=== PATIENT | male | born 1970 | race Caucasian/White ===

== ENCOUNTER → 2020-06-30 08:02 | Outpatient (CLI) | payer BC, SELFPAY ==
--- NOTE | 2020-06-30 08:08 | XR_ITS ---
PROCEDURE: XR KNEE LT 3V CLINICAL INDICATION: LT KNEE PAIN COMPARISON: No exams were available for comparison FINDINGS: No fracture or dislocation. No lytic or blastic change. There is normal mineralization. There is mild joint space narrowing medially and there is mild spurring of the tibial spines. There is moderate spurring of the superior border of the patella. There is no definite effusion. IMPRESSION: Mild degenerate changes of the knee as noted Dictated by: Dr. Zander Tucker MD 06/30/2020 08:37 Dr. Zander Tucker MD in [place] 06/30/2020 08:37
== END ==
PROVIDERS: PCP Family Medicine; Visit Provider Family Medicine
DX: M25.562 Pain in left knee (principal)
CPT/HCPCS: 73562

== ENCOUNTER → 2020-08-20 10:02 | Outpatient (CLI) | payer BC, SELFPAY ==
--- NOTE | 2020-08-20 10:05 | XR_ITS ---
PROCEDURE: XR KNEE LT 4V CLINICAL INDICATION: LT KNEE PAIN COMPARISON: No exams were available for comparison FINDINGS: No fracture or dislocation. No lytic or blastic change. There is normal mineralization. There is mild joint space narrowing medially. There is minor spurring of the tibial spines. The patella is intact and I see no effusion or loose body. IMPRESSION: Minor degenerate changes as noted Dictated by: Dr. Zander Tucker MD 08/20/2020 10:54 Dr. Zander Tucker MD in [place] 08/20/2020 10:54
== END ==
PROVIDERS: PCP Family Medicine; Visit Provider Orthopaedic Surgery
DX: M25.562 Pain in left knee (principal)
CPT/HCPCS: 73564

== ENCOUNTER → 2022-04-27 07:22 | Outpatient (CLI) | payer BC, SELFPAY ==
--- NOTE | 2022-04-27 07:25 | CT_ITS ---
FINAL REPORT CLINICAL HISTORY: PERSONAL HX OF NICOTINE DEPENDENCE quit smoking 5 years ago. smoked 1.5 ppd x 35 years family hx of cancer. FINDINGS: Low-Dose Chest CT Axial images were obtained from the lung apex to the mid abdomen by computed tomography. Low-dose protocol was utilized. CTDI vol (mGy): 2.90 DLP (mGy-cm): 102.90 There are bilateral thyroid nodules with the largest in the right lobe measuring up to 2.2 cm. There is no axillary adenopathy. There is no hilar or mediastinal adenopathy. The heart is proper size. There is mild to moderate coronary artery calcification. There is no pericardial or pleural effusion. Limited images of the upper abdomen are unremarkable. Lung window images demonstrate a right lower lobe nodule measuring 6 mm on image 51. There are several calcified granulomas in the right lower lobe. There are mild changes of emphysema and mild pulmonary scarring. IMPRESSION: 6 mm right lower lobe nodule. Modifier S: Bilateral thyroid nodules. Recommend thyroid ultrasound for further evaluation. Lung RADS category 3S. Recommend 6 month follow-up low-dose chest CT. Reviewed, Interpreted and Dictated by Arie Flores III, MD Transcribed by Esmer Forte Authenticated and . [facility]
== END ==
PROVIDERS: PCP Family Medicine; Visit Provider Family Medicine
DX: Z87.891 Personal history of nicotine dependence (principal); Z12.2 Encounter for screening for malignant neoplasm of respiratory organs
CPT/HCPCS: 71271

== ENCOUNTER → 2022-05-26 13:54 | Outpatient (CLI) | payer BC, SELFPAY ==
--- NOTE | 2022-05-26 13:57 | US_ITS ---
FINAL REPORT CLINICAL HISTORY: THYROID NODULE FINDINGS: THYROID ULTRASOUND Sonographic images of the thyroid was obtained. The right lobe of the thyroid measures 5.0 x 2.4 x 2.1 cm. There is a nodule measuring 2.5 x 2.0 x 2.4 cm. This is mostly solid and hypoechoic consistent with a TI-RADS category 4. The left lobe of the thyroid measures 4.5 x 2.3 x 1.8 cm. There is a nodule measuring 2.0 x 1.3 x 1.5 cm. This is solid and hypoechoic consistent with TI-RADS category 4. The isthmus measures 7 mm. IMPRESSION: Bilateral thyroid nodules. Recommend thyroid ultrasound guided biopsy. Reviewed, Interpreted and Dictated by Arie Flores III, MD Transcribed by Elizabeth Morgan Authenticated and . [facility]
== END ==
PROVIDERS: PCP Family Medicine; Visit Provider Family Medicine
DX: E04.1 Nontoxic single thyroid nodule (principal)
CPT/HCPCS: 76536

== ENCOUNTER → 2022-07-10 07:48 | Outpatient (CLI) | payer BC, SELFPAY ==
--- NOTE | 2022-07-10 | US_ITS ---
FINAL REPORT CLINICAL HISTORY: THYROID NODULE aNun RED FINDINGS: Ultrasound guided thyroid biopsy. HISTORY:. Bilateral thyroid nodules PROCEDURE: After informed consent was obtained and a time-out was performed, the patient was prepped and draped in usual sterile fashion over the anterior neckbilaterally. Utilizing local anesthesia and sterile technique with a 25-gauge needle, access to the bilateral thyroid noduleswas obtained. 3 passes were made on each nodule. The patient received no conscious sedation. The patient tolerated the procedure well and left the department in good condition. IMPRESSION: Status post ultrasound guided biopsy of bilateral thyroid nodules without immediate complication. Films reviewed , interpreted and dictated by Dr. Flores Transcribed by Naun Padgett PA-C. Reviewed, Interpreted and Dictated by Arie Flores III, MD Transcribed by TEOFILO Calhoun Authenticated and [facility]
--- NOTE | 2022-07-10 07:54 | US_ITS ---
FINAL REPORT CLINICAL HISTORY: THYROID NODULE Naun RED FINDINGS: Ultrasound guided thyroid biopsy. HISTORY:. Bilateral thyroid nodules PROCEDURE: After informed consent was obtained and a time-out was performed, the patient was prepped and draped in usual sterile fashion over the anterior neckbilaterally. Utilizing local anesthesia and sterile technique with a 25-gauge needle, access to the bilateral thyroid noduleswas obtained. 3 passes were made on each nodule. The patient received no conscious sedation. The patient tolerated the procedure well and left the department in good condition. IMPRESSION: Status post ultrasound guided biopsy of bilateral thyroid nodules without immediate complication. Films reviewed , interpreted and dictated by Dr. Flores Transcribed by Naun Padgett PA-C. Reviewed, Interpreted and Dictated by Arie Flores III, MD Transcribed by TEOFILO Calhoun Authenticated and [facility]
== END ==
PROVIDERS: PCP Family Medicine; Visit Provider Family Medicine
DX: E04.1 Nontoxic single thyroid nodule (principal)
CPT/HCPCS: 10005; 10006; 76536; 76942; 88173; 88305

== ENCOUNTER → 2022-07-10 09:06 | Outpatient (CLI) | payer BC, SELFPAY ==
[2022-07-10 10:15] LABS: Basophils # 0.1 K/mm3 (0-0.2); Basophils % 2.2 % (0.1-2.0); Eosinophils # 0.2 K/mm3 (0.0-0.4); Eosinophils % 2.7 % (0.1-12.0); Hematocrit 46.5 % (42.0-52.0); Hemoglobin 15.3 g/dL (14.1-18.0); Lymphocytes # 1.2 K/mm3 (0.7-4.5); Lymphocytes % 20.4 % (10-50); Mean Corpuscular HGB Conc 32.8 g/dL (31.8-35.4); Mean Corpuscular Hemoglobin 31.7 pg (27.0-31.2); Mean Corpuscular Volume 96.6 fl (80-94); Mean Platelet Volume 8.2 fl (7.4-10.4); Monocytes # 0.4 K/mm3 (0.1-1.0); Monocytes % 6.1 % (1.7-9.3); Neutrophils % 68.7 % (37.0-80.0); Platelet Count 210 K/mm3 (142-424); Red Blood Count 4.81 M/mm3 (4.60-6.20); White Blood Count 5.8 K/mm3 (4.8-10.8)
[2022-07-10 11:20] LABS: Chloride 101 mmol/L (98-107); Sodium 141 mmol/L (136-145)
[2022-07-10 11:21] LABS: Potassium 4.4 mmoL/L (3.5-5.1)
[2022-07-10 11:24] LABS: Anion Gap 12.4 mEq/L (5-15); Blood Urea Nitrogen 15 mg/dl (9-20); Calcium 8.9 mg/dl (8.4-10.2); Carbon Dioxide 32 mmol/L (22.0-30.0); Estimated Glomerular Filt Rate 89 ml/min (>60); GFR (African American) 107 ML/MIN (>60); Glucose 113 mg/dl (74-100)
== END ==
PROVIDERS: PCP Family Medicine; Visit Provider Surgery
DX: Z01.812 Encounter for preprocedural laboratory examination (principal); Z20.822 Contact with and (suspected) exposure to COVID-19; L72.3 Sebaceous cyst
CPT/HCPCS: 36415; 80048; 85025; C9803; U0003; U0005

== ENCOUNTER 2022-07-13 06:00 | Day surgery (SDC) | payer BC, SELFPAY ==
[2022-07-10 13:21] VITALS: BMI 26.4
[2022-07-13 06:21] VITALS: BP 141/80; PULSE 88; RESP 18; TEMP 36.3; O2SAT 98
--- NOTE | 2022-07-13 07:32 | P.PN_ITS ---
[facility] Medical History History of COVID-19 Psoriasis Surgical History History of surgery on lower extremity S/P thyroid biopsy Family History Mother Family history of cancer Social History Smoking Status: Never smoker alcohol intake: never substance use type: denies use current occupational status: employed Travel in the last 8 weeks: None [facility] Anesthesia Checklist Patient Identification Patient Identification: Arm Band Structural Data Admitted From: Home Planned Operative Procedure/s: Excision of back cyst Consent for Planned Operative Procedure(s) Verified: Yes Verified Documents: Surgical Consent and History and Physical NPO Status Verified Time NPO: 00:00 Additional verifications Anesthesia Reactions: No Hx Blood Transfusions: No Blood Transfusion Reaction: No Airway Assessment C-Spine Mobility Assessed: Yes TMJ Mobility Assessed: Yes Dentition: Dentures-good fit Neurological Assessment Level of Consciousness: Awake and Alert Anesthesia Plan Anesthesia Risk discussed: Yes Anesthesia Plan: Verified ASA Class: I Anesthesia Type: MAC
--- NOTE | 2022-07-13 08:26 | EXP.OP.NOTE ---
Date of procedure: 07/13/22 Pre-op Diagnosis:: Sebaceous cysts along mid back (x3) Note: Superior cyst 3 cm, mid cyst 2 cm, and lower cyst 5 cm Post-op Diagnosis:: Same Procedure performed:: Excision of cystic lesions from mid back (x3) Note: Cysts ranging between 2 and 5 cm Surgeon:: Brien Eid MD Anesthesia: MAC and local Estimated blood loss (mL): 10 Operative findings:: All 3 cyst excised in toto Superior cyst 3 cm Mid cyst 2 cm Inferior cyst 5 cm Operative note:: After informed consent was obtained the patient was taken to the operating room and placed in the supine position. Monitored anesthesia care ensued and he was transferred to the right lateral decubitus position. His mid back was prepped and draped in a sterile fashion. After infiltration local anesthetic elliptical incisions were made around these 3 lesions sharply with scalpel. The deep subcutaneous tissue was dissected around each of the cystic lesions and they were all 3 excised in toto and passed off for pathologic evaluation. The upper/superior cyst was 3 cm. The mid cyst was 2 cm and the inferior/lower cyst was 5 cm in dimension. Electrocautery was utilized to achieve hemostasis at all 3 sites. Skin was reapproximated with interrupted 4-0 nylon. Dressings were applied and the patient was transferred to recovery in stable condition. Condition: stable Disposition: PACU Specimens:: Upper mid back cystic lesion Mid back cystic lesion Lower mid back cystic lesion Complications:: No immediate
[2022-07-13 08:31] VITALS: BP 104/79; PULSE 95; RESP 18; TEMP 36.6; O2SAT 98
[2022-07-13 08:46] VITALS: BP 136/74; PULSE 79; RESP 19; O2SAT 99
[2022-07-13 09:01] VITALS: BP 155/99; PULSE 86; RESP 19; O2SAT 100
== END 2022-07-13 09:02 | disposition home or self-care (01) ==
PROVIDERS: PCP Family Medicine; Visit Provider Surgery
PROC: (CPT 11403; principal; 2022-07-13 07:30)
DX: L72.0 Epidermal cyst (principal)
CPT/HCPCS: 11403; 11402; 11406; 88304; 96374; J2405; J2704

== ENCOUNTER 2024-10-03 09:18 | Emergency (ER) | payer BC, SELFPAY ==
[2024-10-03 10:20] VITALS: BP 151/85; PULSE 107; RESP 21; TEMP 39.7; O2SAT 95; BMI 30.8
[2024-10-03 10:33] LABS: UTC Influenza B Antigen Negative (Negative)
[2024-10-03 10:34] LABS: UTC Influenza A Antigen Positive (Negative)
[2024-10-03] MEDS: IBUPROFEN 400 MG TABLET 800 MG PO (10:42)
[2024-10-03] MEDS: ACETAMINOPHEN 500MG TAB 1000 MG PO (10:42)
--- NOTE | 2024-10-03 10:51 | ED_ITS ---
Discharge Plan Disposition Patient Disposition: Home, Self-Care Condition: Good Prescriptions Prescriptions: New oseltamivir [Tamiflu] 75 mg capsule 75 mg PO Q12H 5 Days Qty: 10 0RF Referrals Follow up/Referrals: Teodoro Sahu MD [Primary Care Provider] - See instructions Activity Restrictions/Add. Instructions Additional Instructions/Restrictions: * Start Tamiflu today if you are going to take it. Discussed risk and possible benefits. * Lots of rest * Increase Fluids water, Gatorade, powerade, pedialyte,if infant/toddler/child * Alternate Tylenol and / or ibuprofen as discussed for fever, aches, chills Follow up IMMEDIATELY with your family doctor for new or worsening Symptoms OR no noticeable improvement over the next 48-72 hours, 911 for difficulty or breathing * You or your child area contagious until no fever, aches, chills for 24 hours with medication for symptoms * Help Prevent the spread of influenza: * ?Wash your hands often. Use soap and water. Wash your hands after you use the bathroom, change a child's diapers, or sneeze. Wash your hands before you prepare or eat food. Use gel hand cleanser that has 60% alcohol, when soap and water are not available. Do not touch your eyes, nose, or mouth unless you have washed your hands first. * Cover your mouth when you sneeze or cough. Cough into a tissue or the bend of your arm. If you use a tissue, throw it away immediately and wash your hands. * Clean shared items with a germ-killing millstone cleaner. Clean table surfaces, doorknobs, and light switches. Do not share towels, silverware, and dishes with people who are sick. Wash bed sheets, towels, silverware, and dishes with soap and water. * Wear a mask over your mouth and nose if you are sick. The face mask may help protect others from becoming infected with the flu. Wear the mask when in common areas of your home or if you seek care with a healthcare provider.Stay away from others if you are sick. Stay at home until 24 hours after your fever and symptoms are gone Clinical Impressions Clinical Impression: Influenza A Stand Alone Forms Stand Alone Forms: Work/School Release Instructions Patient Instructions: DI for Influenza -- Adult, Oseltamivir Print Language Print Language: Korean Discharge ED [place]yan[place] Alonso [facility] [place] General Stated complaint: cough, fever, body aches Mode of Arrival: Ambulatory Source of Information: Patient Limitations: No Limitations Time Seen by Provider: 10/03/24 10:51 Description of Symptoms (Recalled from Triage Doc. by RN): PATIENT C/O FEVER AND BODY ACHES THAT STARTED YESTERDAY MORNING HEENT Symptoms (Recalled from RN notes): No Resp Symptoms (Recalled from RN notes): No Skin Symptoms (Recalled from RN notes): No MS Symptoms (Recalled from RN notes): No Functional Status (Recalled from RN notes): WNL History of Present Illness Provider Complaint: Patient states that he was around his parents that has the flu and yesterday he started with body aches, chills, fever, headache and flu like symptoms thinks he may have the flu now too Related Data Previous Rx's ?Medication ?Instructions ?Recorded oseltamivir 75 mg capsule (Tamiflu) 75 mg PO Q12H 5 days #10 caps 10/03/24 Allergies Allergy/AdvReac Type Severity Reaction Status Date / Time No Known Allergies Allergy Verified 08/16/22 09:46 Worker's Comp Is this a Worker's Comp case?: No [facility] Disclaimer: The information contained in this section may have been updated after the patient was seen, as this information can be updated by other users. Medical History History of COVID-19 Psoriasis Surgical History History of local excision of skin lesion History of surgery on lower extremity SURGERY - RIGHT LEG S/P thyroid biopsy Family History Mother Family history of cancer Social History Smoking Status: Never smoker alcohol intake: never substance use type: denies use current occupational status: employed Travel in the last 8 weeks: None Have you lived/traveled outside [place] in past 30 days?: No Contact w/someone who lives/traveled outside US past 30 days?: No Exposure to someone with infectious disease in past 14 days?: No Do you have a fever (greater than 100.4 F or 38 C)?: Yes Have you tested positive for COVID-19: No Exposed to someone with COVID-19 in past 14 days?: No Do you have a sore throat?: No Do you have a cough?: Yes Do you have any weakness?: No Do you have any diarrhea?: No Are you experiencing any unusual bleeding?: No Do you have any muscle aches/pain?: Yes Do you have any abdominal pain?: No Are you experiencing loss of taste or smell?: No ROS Obtained: Yes All systems reviewed & no additional complaints except as documented and Yes Systems reviewed as appropriate & no additional complaints except as documented Constitutional Constitutional: Reports system reviewed and no additional complaints, except as documented, Reports as per HPI, Reports body ache, Reports chills, Reports fever(s) and Reports headache(s) ENT Ears, Nose, Mouth, and Throat: Reports system reviewed and no additional complaints, except as documented, Reports as per HPI, Reports headache(s) and Reports nasal congestion Cardiovascular Cardiovascular: Reports system reviewed and no additional complaints, except as documented and Reports as per HPI Respiratory Respiratory: Reports system reviewed and no additional complaints, except as documented and Reports as per HPI Gastrointestinal Gastrointestingal: Reports system reviewed and no additional complaints, except as documented and as per HPI Neurologic Neurologic: Reports headache(s) Physical Exam General General appearance: alert and in no apparent distress ENT ENT exam: Present normal oropharynx, mucous membranes moist and TM's normal bilaterally Respiratory Respiratory exam: Present normal lung sounds bilaterally; Absent respiratory distress or wheezes Cardiovascular Cardiovascular exam: Present regular rate, normal rhythm and tachycardia Abdominal Exam Abdominal exam: Present soft and normal bowel sounds; Absent distention or tenderness Neurological Exam Neurological exam: Present alert, oriented X3 and normal gait Medical Decision Making Medical Records Screening: Per USPSTF and CDC recommendations, given the prevalence of disease in our region, it is our hospital?s policy to screen for HIV and viral Hepatitis for all patients aged 18 and over and those with ongoing risk factors. Blake Inquiry Pt receiving controlled substance: No Blake was queried for this patient: No Vital Signs: 10/03/24 10:20 Temperature 103.5 F H Temperature Source Oral Pulse Rate [Left Brachial] 107 H Respiratory Rate 21 Blood Pressure [Left Arm] 151/85 H Blood Pressure Mean [Left Arm] 107 Blood Pressure Source [Left Arm] Automatic Cuff Blood Pressure Position [Left Arm] Sitting 02 Sat by Pulse Oximetry 95 Oxygen Delivery Method Room Air Lab Data Lab results reviewed: Yes I reviewed the patient's lab results. Lab Results 10/03/24 10:28: Influenza Type A Ag Positive A, Influenza Type B Ag Negative Orders (Tests/Meds): ED MEDICATIONS Discontinued Medications Generic Name Dose Route Start Last Admin Trade Name Freq PRN Reason Stop Dose Admin Acetaminophen 1,000 mg 10/03/24 10:38 10/03/24 10:42 Acetaminophen 500mg Tab PO 10/03/24 10:39 1,000 mg ONCE ONE Administration Ibuprofen 800 mg 10/03/24 10:38 10/03/24 10:42 Ibuprofen 400 Mg Tablet PO 10/03/24 10:39 800 mg ONCE ONE Administration
[2024-10-03 11:13] VITALS: BP 151/85; PULSE 107; RESP 21; TEMP 37.8; O2SAT 95
== END 2024-10-03 11:18 | disposition home or self-care (01) ==
PROVIDERS: Emergency Provider Nurse Practitioner; PCP Family Medicine
DX: J09.X2 Influenza due to identified novel influenza A virus with other respiratory manifestations (principal)
CPT/HCPCS: 87804; 99213; G0381

== ENCOUNTER 2024-10-06 08:00 | Emergency (ER) | payer BC, SELFPAY ==
[2024-10-06 08:05] VITALS: BP 137/92; PULSE 79; RESP 18; TEMP 37.4; O2SAT 94; BMI 29.5
--- NOTE | 2024-10-06 08:05 | XR_ITS ---
FINAL REPORT CLINICAL HISTORY: congestion, soa FINDINGS: 2 views of the chest were obtained . The heart is normal in size. The mediastinum is within normal limits. There are increased interstitial markings which are worse at the lung bases, pneumonia not excluded. There is no pneumothorax or pleural effusion. IMPRESSION: Increased interstitial markings, worse at the lung bases. Pneumonia not excluded. Reviewed, Interpreted and Dictated by Bailey Benavides MD Transcribed by Anabel Romano Authenticated and . [facility]
--- NOTE | 2024-10-06 08:19 | EXP.UTC ---
Discharge Plan Disposition Patient Disposition: Home, Self-Care Condition: Good Prescriptions Prescriptions: New amoxicillin-pot clavulanate 875-125 mg Tablet 1 tab PO Q12H 10 Days Qty: 20 0RF guaifenesin [Mucinex] 1,200 mg tablet extended release 12hr 1,200 mg PO Q12H PRN (Reason: congestion) Qty: 20 0RF albuterol sulfate 90 mcg/actuation HFA aerosol inhaler 2 puff inhalation Q4-6H PRN (Reason: shortness of breath or wheezing) Qty: 8.5 0RF prednisone 20 mg tablet 20 mg PO BID 5 Days Qty: 10 0RF azithromycin [Zithromax Z-Avila] 250 mg tablet See Rx Instructions .ROUTE .COMPLEX 5 Days Qty: 6 0RF Rx Instructions: For 250 mg dose pack: take 500 mg today (day 1), then 250 mg for 4 days (days 2-5) No Action oseltamivir [Tamiflu] 75 mg capsule 75 mg PO Q12H 5 Days Qty: 10 0RF Referrals Follow up/Referrals: Teodoro Sahu MD [Primary Care Provider] - See instructions Activity Restrictions/Add. Instructions Additional Instructions/Restrictions: Start antibiotic today. Be sure to complete entire prescription even if feeling better Monitor temp. Tylenol every 4 hours as needed and / or ibuprofen every 6 hours as needed ( As long as your primary care physician has told you that it ok to take both. For fever/aches/pains ER if no less than 101 despite Tylenol or Motrin Humidifier/vaporizer or hot steamy shower Inhaler every 4-6 hours as needed like we discussed. If unsure how to use it, ask pharmacist to demonstrate how. Should help open airways and improve cough, wheezing, and shortness of breath Mucinex for your cough Be sure to drink lots of water. *Start steroid today. Helps with inflammation therefore, cough and wheezing. Follow directions on the package. Reviewed side effects. Patient reports taking them before. Follow up IMMEDIATELY for new or worsening of symptoms OR no noticeable improvement over the next 48-72 hours. 911 immediately for any life threatening symptoms such as chest pain or difficulty breathing Clinical Impressions Clinical Impression: Pneumonia Qualifiers: Pneumonia type: due to unspecified organism Laterality: unspecified laterality Lung location: unspecified part of lung Qualified Code(s): J18.9 - Pneumonia, unspecified organism Stand Alone Forms Stand Alone Forms: Work/School Release Instructions Patient Instructions: Pneumonia--Adult, Prednisone, Amoxicillin and Clavulanic Acid, Azithromycin Print Language Print Language: Divehi Discharge ED Provider: Cheyanne Alonso [facility] [place] HPI General Stated complaint: chest congestion Mode of Arrival: Ambulatory Source of Information: Patient Limitations: No Limitations Time Seen by Provider: 10/06/24 08:19 Description of Symptoms (Recalled from Triage Doc. by RN): PATIENT C/O CHEST CONGESTION AND NON-PRODUCTIVE COUGH. PATIENT WAS DIAGNOSED WITH FLU ON SUNDAY HEENT Symptoms (Recalled from RN notes): No Resp Symptoms (Recalled from RN notes): Yes Skin Symptoms (Recalled from RN notes): No MS Symptoms (Recalled from RN notes): No Functional Status (Recalled from RN notes): WNL History of Present Illness Provider Complaint: Patient states that he was dx with flu on Sunday States that the congestion has settled in his chest and he is concerned he may be trying to set up pneumonia or bronchitis so he came in to get checked States that he is no longer having fever and chills just the cough and chest congestion Related Data Previous Rx's ?Medication ?Instructions ?Recorded oseltamivir 75 mg capsule (Tamiflu) 75 mg PO Q12H 5 days #10 caps 10/03/24 albuterol sulfate 90 mcg/actuation 2 puff inhalation Q4-6H PRN 10/06/24 aerosol inhaler shortness of breath or wheezing #8.5 grams amoxicillin 875 mg-potassium 1 tab PO Q12H 10 days #20 tabs 10/06/24 clavulanate 125 mg tablet azithromycin 250 mg tablet See Rx Instructions PO .COMPLEX 5 10/06/24 (Zithromax Z-Avila) days #6 tabs guaifenesin 1,200 mg tablet, 1,200 mg PO Q12H PRN congestion 10/06/24 extended release 12 hr (Mucinex) #20 tabs prednisone 20 mg tablet 20 mg PO BID 5 days #10 tabs 10/06/24 Allergies Allergy/AdvReac Type Severity Reaction Status Date / Time No Known Allergies Allergy Verified 08/16/22 09:46 Worker's Comp Is this a Worker's Comp case?: No [facility] Disclaimer: The information contained in this section may have been updated after the patient was seen, as this information can be updated by other users. Medical History History of COVID-19 Psoriasis Surgical History History of local excision of skin lesion History of surgery on lower extremity SURGERY - RIGHT LEG S/P thyroid biopsy Family History Mother Family history of cancer Social History Smoking Status: Never smoker alcohol intake: never substance use type: denies use current occupational status: employed Travel in the last 8 weeks: None Have you lived/traveled outside [place] in past 30 days?: No Contact w/someone who lives/traveled outside [place] past 30 days?: No Exposure to someone with infectious disease in past 14 days?: No Do you have a fever (greater than 100.4 F or 38 C)?: No Have you tested positive for COVID-19: No Exposed to someone with COVID-19 in past 14 days?: No Do you have a sore throat?: No Do you have a cough?: Yes Do you have any weakness?: No Do you have any diarrhea?: No Are you experiencing any unusual bleeding?: No Do you have any muscle aches/pain?: No Do you have any abdominal pain?: No Are you experiencing loss of taste or smell?: No ROS Obtained: Yes All systems reviewed & no additional complaints except as documented and Yes Systems reviewed as appropriate & no additional complaints except as documented Constitutional Constitutional: Reports system reviewed and no additional complaints, except as documented and Reports as per HPI Eyes Eyes: Reports system reviewed and no additional complaints, except as documented and Reports as per HPI ENT Ears, Nose, Mouth, and Throat: Reports system reviewed and no additional complaints, except as documented and Reports as per HPI Cardiovascular Cardiovascular: Reports system reviewed and no additional complaints, except as documented and Reports as per HPI Respiratory Respiratory: Reports system reviewed and no additional complaints, except as documented, Reports as per HPI, Reports shortness of breath (at times after coughing episode), Reports chest congestion and Reports cough Gastrointestinal Gastrointestingal: Reports system reviewed and no additional complaints, except as documented and as per HPI Genitourinary Male Genitourinary: Reports system reviewed and no additional complaints, except as documented and Reports as per HPI Physical Exam General General appearance: alert and in no apparent distress ENT ENT exam: Present normal exam, normal oropharynx, mucous membranes moist and TM's normal bilaterally Respiratory Respiratory exam: Present normal lung sounds bilaterally and wheezes (mild scattered wheezes noted, rhonchi clears with cough); Absent respiratory distress Cardiovascular Cardiovascular exam: Present regular rate, normal rhythm and normal heart sounds Abdominal Exam Abdominal exam: Present soft and normal bowel sounds; Absent distention or tenderness Neurological Exam Neurological exam: Present alert, oriented X3 and normal gait Medical Decision Making Medical Records Screening: Per USPSTF and CDC recommendations, given the prevalence of disease in our region, it is our hospital?s policy to screen for HIV and viral Hepatitis for all patients aged 18 and over and those with ongoing risk factors. Blake Inquiry Pt receiving controlled substance: No Blake was queried for this patient: No Vital Signs: 10/06/24 08:05 Temperature 99.4 F Temperature Source Oral Pulse Rate [Left] 79 Respiratory Rate 18 Blood Pressure [Left Arm] 137/92 H Blood Pressure Mean [Left Arm] 107 Blood Pressure Source [Left Arm] Automatic Cuff Blood Pressure Position [Left Arm] Sitting 02 Sat by Pulse Oximetry 94 L Oxygen Delivery Method Room Air Orders (Tests/Meds): ORDERS Category Date Time Status CXR 2 view (NOT portable) [XR chest 2V] Stat Exams 10/06/24 08:05 Taken Radiology Data #1: Image(s): Chest Image Reviewed: Yes I have reviewed radiologist's interpretation Increased interstitial markings worse at lung bases. Pneumonia not excluded
[2024-10-06] MEDS: IPRATROPIUM/ALBUTEROL 3 ML NEB IH (08:30)
[2024-10-06 09:20] VITALS: BP 137/92; PULSE 79; RESP 18; TEMP 37.4; O2SAT 100
== END 2024-10-06 09:23 | disposition home or self-care (01) ==
PROVIDERS: Emergency Provider Nurse Practitioner; PCP Family Medicine
DX: J18.9 Pneumonia, unspecified organism (principal); R05.9 Cough, unspecified; R09.89 Other specified symptoms and signs involving the circulatory and respiratory systems
CPT/HCPCS: 71046; 99212; G0381; J7620